=== PATIENT | male | born 1970 | race Caucasian/White ===

== ENCOUNTER 2016-07-21 06:15 | Day surgery (SDC) | payer OTHER ==
[2016-07-14 17:02] VITALS: BMI 35.2
[~2016-07-21 06:15] MED LIST: LACTATED RINGERS SOLUTION 1,000 ML IV SCH; ONDANSETRON 4 MG/2 ML VIAL IVPUSH PRN; PROMETHAZINE HCL 25 MG/1 ML VIAL IVPUSH PRN; oxyCODONE HCL 5 MG TABLET PO PRN
[2016-07-21] MEDS ORDERED: PROPOFOL 20 ML ONE ×4 (07:16)
[2016-07-21] MEDS ORDERED: DEXAMETHASONE SOD PHOSPHATE 4 MG/1 ML VIAL ONE (07:19)
[2016-07-21] MEDS ORDERED: ONDANSETRON 4 MG/2 ML VIAL ONE (07:19)
[2016-07-21] MEDS ORDERED: ceFAZolin SODIUM 1 GM VIAL ONE (07:21)
[2016-07-21] MEDS ORDERED: KETOROLAC TROMETHAMINE 30 MG/1 ML VIAL ONE (07:22)
[2016-07-21] MEDS ORDERED: SUCCINYLCHOLINE CHLORIDE 200 MG/10 ML VIAL ONE (07:23)
[2016-07-21] MEDS ORDERED: MIDAZOLAM HCL 2 MG/2 ML SINGLE DOSE VIAL ONE ×2 (07:24)
[2016-07-21] MEDS ORDERED: KETOROLAC TROMETHAMINE 60 MG/2 ML VIAL ONE (07:31)
[2016-07-21] MEDS ORDERED: BUPIVACAINE HCL/PF 0.5% (5MG/ML) 10 ML VIAL ONE (07:32)
[2016-07-21] MEDS ORDERED: morphine CARPU-JECT 10 MG/1 ML DISP.SYRIN ONE ×2 (07:32→08:24)
[2016-07-21] MEDS ORDERED: DESFLURANE GAS 240 ML BOTTLE IH ONE (08:51)
[2016-07-21 10:18] VITALS: TEMP 98.9
[2016-07-21 11:46] VITALS: PULSE 72
[2016-07-21] MEDS ORDERED: oxyCODONE HCL 5 MG TABLET ONE (11:48)
[2016-07-21 12:02] VITALS: BP 114/66
--- NOTE | 2016-07-22 15:07 | OP ---
DATE OF OPERATION: 07/21/2016 PREOPERATIVE DIAGNOSIS: Torn medial meniscus to the left knee. POSTOPERATIVE DIAGNOSES: Torn medial and lateral meniscus left knee with chondromalacia, hypertrophic synovium, joint debris, and an osteochondral defect on medial femoral condyle. PROCEDURE PERFORMED: Operative arthroscopy of the left knee with partial medial and lateral meniscectomy, chondroplasty, synovectomy, joint debridement, and local stem cell recruit using microfracture technique for osteochondral defect on the medial femoral condyle. SURGEON: Salas Pastrana MD DRAWER LINER: ALVAREZ Martinez ANESTHESIOLOGIST: Drake Weston MD ANESTHESIA: General anesthesia. The procedure consisted of the patient being brought into the operating room and gently transferred from the stretcher to the OR table with all bony prominences well padded. The left leg was prepared and draped in a sterile fashion. Patient was given intravenous antibiotics and copious irrigation throughout the procedure to minimize risk of infection. Complete risks and benefits and alternatives discussion was conducted with the patient which were inclusive of but not limited to the risk of infection, bleeding, paralysis, increase pain, and the need for repeat surgery. Following sterile preparation and draping of the left leg, appropriate surgical time out was initiated and included the patient name, the consented procedure, the approriate side and site. The leg was exsanguinated over Esmarch bandage and the tourniquet inflated to 325 mmHg. The suprapatella, medial, and lateral joint line portals were used to introduce the arthroscope and arthroscopic instruments. The knee was examined. There was noted to be hypertrophic synovium in the suprapatellar pouch. A partial synovectomy was performed. The anterior surface of the patella had damaged consistent with chondromalacia. This was smoothed using shaver and radiofrequency wand. The medial and lateral gutters were without plica or loose body. Medial meniscus was noted to have a tear of the posterior horn, and this was resected using shaver radiofrequency wand. There was noted to be an osteochondral defect approximately 1 cm in diameter along the medial femoral condyle. This was debrided using a shaver and microfracture technique was used to create an array of microfracture holes through the femoral condyle to recruit local stem cells. Awls of appropriate angle and shape were used to create this. Intercondylar region was noted to have joint debris, and joint debridement was performed. Lateral meniscus was found to have a tear of the posterior horn, and this was resected using shaver and radifrequency wand. The knee was copiously irrigated. There was noted to be an area of eburnated bone on the lateral femoral condyle. The knee joint was then copiously irrigated with sterile saline irrigant. The wounds were closed using 4-0 undyed Vicryl followed by Steri-Strips, Xeroform, 4 x 4's, sterile Keith bandage, knee immobilizer. The tourniquet was deflated after approximately 20 minutes of tourniquet time. There were no intraoperative complications. SALAS PASTRANA M.D. [id number] MTDD
== END 2016-07-21 12:15 | disposition home or self-care (01) ==
LOC: FASU 06:15
PROVIDERS: ATTEND Orthopaedic Surgery
PROC: 0SBD4ZZ Excision of Left Knee Joint, Percutaneous Endoscopic Approach (ICD-10-PCS; 2016-07-21)
PROC: 0SQD4ZZ Repair Left Knee Joint, Percutaneous Endoscopic Approach (ICD-10-PCS; 2016-07-21)
PROC: 0SBD4ZZ Excision of Left Knee Joint, Percutaneous Endoscopic Approach (ICD-10-PCS; 2016-07-21)
PROC: 0SBD4ZZ Excision of Left Knee Joint, Percutaneous Endoscopic Approach (ICD-10-PCS; principal; 2016-07-21 08:00)
DX: S83.242A Other tear of medial meniscus, current injury, left knee, initial encounter (principal); S83.282A Other tear of lateral meniscus, current injury, left knee, initial encounter; M94.262 Chondromalacia, left knee; M67.262 Synovial hypertrophy, not elsewhere classified, left lower leg; M21.862 Other specified acquired deformities of left lower leg
CPT/HCPCS: 94760

== ENCOUNTER 2017-07-06 06:52 | Day surgery (SDC) | payer OTHER ==
[2017-06-29 11:21] VITALS: BMI 34.0
[2017-07-06] MEDS ORDERED: DEXAMETHASONE SOD PHOSPHATE/PF 10 MG/ML SDV ONE (08:50)
[2017-07-06] MEDS ORDERED: MIDAZOLAM HCL 2 MG/2 ML SINGLE DOSE VIAL ONE ×2 (08:51→09:34)
[2017-07-06] MEDS ORDERED: ROPIVACAINE HCL 0.5% 30ML VIAL ONE (08:51)
[2017-07-06] MEDS ORDERED: SODIUM CHLORIDE 0.9% P/F 10 ML VIAL IJ ONE (09:32)
[2017-07-06] MEDS ORDERED: ceFAZolin SODIUM 1 GM VIAL ONE (09:32)
[2017-07-06] MEDS ORDERED: PROPOFOL 20 ML ONE ×2 (09:46→10:13)
[2017-07-06] MEDS ORDERED: LIDOCAINE HCL/PF 2% SDV 5ML VIAL ONE (09:47)
[2017-07-06] MEDS ORDERED: ONDANSETRON 4 MG/2 ML VIAL IVPUSH PRN (10:04)
[2017-07-06] MEDS ORDERED: oxyCODONE HCL 5 MG TABLET PO PRN ×2 (10:04)
[2017-07-06] MEDS ORDERED: LACTATED RINGERS SOLUTION 1,000 ML IV SCH (10:15)
[2017-07-06] MEDS ORDERED: oxyCODONE HCL 5 MG TABLET ONE (10:56)
[2017-07-06 11:03] VITALS: TEMP 98
[2017-07-06 11:48] VITALS: BP 122/72; PULSE 79
--- NOTE | 2017-07-07 11:30 | OP ---
DATE OF OPERATION: 07/06/2017 PREOPERATIVE DIAGNOSIS: Torn rotator cuff to the right shoulder. POSTOPERATIVE DIAGNOSIS: Torn rotator cuff to the right shoulder with impingement from the outer acromion as well as the coracoacromial ligament and the lateral clavicle including the articular portion as well as the tearing of the glenoid labrum and tearing of the rotator cuff with hypertrophic synovium and inflamed bursal tissue. PROCEDURE PERFORMED: Shoulder decompression of subacromial space with partial acromioplasty with release and resection of coracoacromial ligament, lysis and resection of adhesions, distal claviculectomy including the distal articular surface, partial synovectomy with extensive debridement, debridement of inflamed bursal tissue, debridement of rotator cuff, partial glenoid labral resection. SURGEON: Salas Pastrana MD STRIPE MATCHER: ALVAREZ Martinez ANESTHESIA: Regional anesthesia was performed by . The procedure consisted of the patient being brought into the operating room and gently transferred from the stretcher to the OR table with all bony prominences well padded. The right shoulder was prepared and draped in a sterile fashion. Patient was given intravenous antibiotics and copious irrigation throughout the procedure to minimize the risk for infection. Complete risks, benefits, alternatives discussion was conducted with the patient which was inclusive of but not limited to infection, bleeding, , paralysis, increased pain, need for repeat surgery. Patient asked questions, understood the procedure, and decided to proceed with surgical treatment. Following this, an appropriate timeout was conducted identifying but not limited to site of surgery, surgeons, anesthesia type, the medical condition of the patient , and the type of surgery. The procedure consisted of the patient being brought into the operating room and gently transferred from the stretcher to the OR table with all bony prominences well padded. The right shoulder was prepared and draped in a sterile fashion. The patient was then placed in the [id number] lateral decubitus position with all bony prominences well padded. The well protected. An axillary roll provided. A pillow was placed below the legs to protect the peroneal nerve and a pillow between the legs as well. Following this, gentle traction between 8-10 pounds was applied across the shoulder joint with anterior, posterior, and lateral portals used to introduce the arthroscope and arthroscopic instruments. The glenohumeral joint was evaluated. There was noted to be hypertrophic synovium and extensive partial synovectomy was performed. The glenoid labrum was found to have a tear, and a partial glenoid labral resection was performed. The anterior and posterior recesses without loose body. The biceps tendon was found to be intact. The middle glenohumeral joint was found to be intact. Rotator cuff on the articular side was found to have a tear which was probed and found to be partial thickness. This was debrided using shaver and radiofrequency wand. Glenoid labrum was also found to have a tear, and a partial glenoid labral resection was performed. The shoulder joint was copiously irrigated. Hypertrophic synovium was also removed. An extensive partial synovectomy was performed. Our attention was turned to the subacromial space. There was noted to be inflamed bursal tissue. An extensive partial bursectomy was performed. Following this, the outer edge of acromion was found to be creating an impingement, and this was debrided and a high-speed edi and shaver were used to resect a wedge of bone taken anteriorly and posteriorly. Coracoacromial ligament was also creating impingement. This was released and resected. Lateral clavicle including the articular portion was also creating impingement. This was debrided and a high-speed edi and shaver were used to resect the lateral clavicle including the articular portion. The patient was given copious irrigation. The wound was closed with 4-0 undyed Vicryl. We applied Steri-Strips, Xeroform, 4 x 4's, combined, Elastoplast and shoulder immobilizer. The patient was then gently awoken from anesthesia without incident, transferred from the operating room to the recovery room in satisfactory condition. There were no intraoperative complications. SALAS PASTRANA M.D. [id number] MTDYing
== END 2017-07-06 11:40 | disposition home or self-care (01) ==
LOC: FASU 06:52
PROVIDERS: ATTEND Orthopaedic Surgery
PROC: 0RNJ4ZZ Release Right Shoulder Joint, Percutaneous Endoscopic Approach (ICD-10-PCS; 2017-07-06)
PROC: 0PB94ZZ Excision of Right Clavicle, Percutaneous Endoscopic Approach (ICD-10-PCS; 2017-07-06)
PROC: 0RBJ4ZZ Excision of Right Shoulder Joint, Percutaneous Endoscopic Approach (ICD-10-PCS; 2017-07-06)
PROC: 0LB14ZZ Excision of Right Shoulder Tendon, Percutaneous Endoscopic Approach (ICD-10-PCS; principal; 2017-07-06 09:53)
DX: M75.101 Unspecified rotator cuff tear or rupture of right shoulder, not specified as traumatic (principal); M75.41 Impingement syndrome of right shoulder; M67.211 Synovial hypertrophy, not elsewhere classified, right shoulder; M24.111 Other articular cartilage disorders, right shoulder

== ENCOUNTER 2020-11-27 14:03 | Emergency (ER) | payer OTHER ==
[2020-11-27] MEDS ORDERED: LIDOCAINE HCL 1%, 10 MG/ML (50 mL VIAL) SQ ONE (14:17)
[2020-11-27] MEDS ORDERED: ACETAMINOPHEN 500 MG TABLET (FP) PO ONE (14:17)
[2020-11-27 14:21] VITALS: TEMP 98.3; BMI 37.3
[2020-11-27] MEDS ORDERED: LIDOCAINE HCL 1%, 10 MG/ML (20ML VIAL) ONE (14:30)
[2020-11-27] MEDS ORDERED: ACETAMINOPHEN 500 MG TABLET (FP) ONE (14:31)
[2020-11-27] MEDS ORDERED: diazePAM 5 MG TABLET PO ONE (15:38)
[2020-11-27] MEDS ORDERED: diazePAM 5 MG TABLET ONE (15:39)
[2020-11-27] MEDS ORDERED: PROPOFOL 200 MG/20 ML VIAL IVPUSH ONE ×2 (15:55→16:37)
[2020-11-27] MEDS ORDERED: PROPOFOL 1,000,000 MCG/100 ML VIAL ONE (16:24)
[2020-11-27] MEDS ORDERED: IBUPROFEN 600 MG TABLET (FP) PO ONE (16:58)
[2020-11-27] MEDS ORDERED: KETOROLAC TROMETHAMINE 30 MG/1 ML VIAL IVPUSH ONE (17:08)
[2020-11-27] MEDS ORDERED: KETOROLAC TROMETHAMINE 30 MG/1 ML VIAL ONE (17:11)
[2020-11-27 18:39] VITALS: BP 132/112; PULSE 70
== END 2020-11-27 18:16 | disposition home or self-care (01) ==
LOC: FER 14:03
PROC: 0RSJXZZ Reposition Right Shoulder Joint, External Approach (ICD-10-PCS; principal; 2020-11-27)
PROC: 3E033GC Introduction of Other Therapeutic Substance into Peripheral Vein, Percutaneous Approach (ICD-10-PCS; 2020-11-27)
PROC: 3E033GC Introduction of Other Therapeutic Substance into Peripheral Vein, Percutaneous Approach (ICD-10-PCS; 2020-11-27)
PROC: 3E033GC Introduction of Other Therapeutic Substance into Peripheral Vein, Percutaneous Approach (ICD-10-PCS; 2020-11-27)
DX: S43.004A Unspecified dislocation of right shoulder joint, initial encounter (principal)
CPT/HCPCS: 73030-TC-RT-FY; 99284-25